=== PATIENT | female | born 1945 | race Caucasian/White ===

== ENCOUNTER 2017-03-28 11:33 | Outpatient (CLI) | payer MEDICARE, OTHER ==
[2017-03-28 12:12] LABS: eGFR (African) > 60; eGFR (Non-African) > 60
--- NOTE | 2017-03-28 14:41 | Diagnostic Imaging Report ---
KATHERIN SHARP [facility] [id number] [facility].[address] [id number] Report Submission Date: March 28, 2017 1:35:27 PM CDT Patient Study Name: KIERRA DEVLIN Date: March 28, 2017 12:03:52 PM CDT Modality Type: CR Gender: F Description: CHEST : 41 Institution: [facility] Physician: KATHERIN SHARP Chest -two views CLINICAL HISTORY: Dyspnea on exertion. FINDINGS: Examination of the chest in PA and lateral views with no prior film for comparison demonstrates cardiomegaly and aortic atherosclerosis. There is a retrocardiac hiatal hernia. Lungs are free of coalescent infiltrate. Bony thorax is intact. IMPRESSION: Cardiomegaly and aortic atherosclerosis. Hiatal hernia. No active disease. Electronically signed on March 28, 2017 1:35:27 PM CDT by: Jose RUBI
== END 2017-03-28 11:34 ==
LOC: RAD 11:33
PROVIDERS: ATTEND Family Medicine
DX: I10 Essential (primary) hypertension (principal); E11.9 Type 2 diabetes mellitus without complications; R06.09 Other forms of dyspnea
CPT/HCPCS: 36415; 71020; 80048; 83036; 84484

== ENCOUNTER 2017-04-08 14:41 | Outpatient (CLI) | payer MEDICARE, OTHER | END 2017-04-08 14:42 | LOC: NEPHRO 14:41 | PROVIDERS: ATTEND Internal Medicine Nephrology | DX: I10 Essential (primary) hypertension (principal); E87.6 Hypokalemia | CPT/HCPCS: G0463 ==

== ENCOUNTER 2017-04-11 12:06 | Outpatient (CLI) | payer MEDICARE, OTHER ==
[2017-04-11 13:46] LABS: eGFR (African) > 60; eGFR (Non-African) > 60
--- NOTE | 2017-04-12 00:46 | Diagnostic Imaging Report ---
CORBY ZHU~ [facility] [address] [facility].[address] [place] [address]. [id number] ~ ~ ~ ~ Report Submission Date: April 11, 2017 3:14:21 PM CDT Patient ~ Study Name: KIERRA DEVLIN ~ Date: April 11, 2017 12:20:02 PM CDT ~ Modality Type: US Gender: F ~ Description: US RETROPERITONEAL LIMIT : 41 ~ Institution: [facility] Physician: CORBY ZHU ~ ~ ~ ~ Renal ultrasound and duplex imaging of the renal vasculature Clinical history: ~Hypertension. ~Hypokalemia. Technique: ~Real time sonography of the kidneys is performed in transverse and longitudinal views. ~Following this duplex imaging of the renal vasculature and abdominal aorta was performed. Findings: ~The right kidney measures 10.9 cm in length by 5.6 x 5.3 cm in size with a calculated volume of 168 ml. ~Left kidney measures 10.2 cm in length by 4.9 x 4.6 cm in size with a calculated volume of 120 ml. ~Renal cortical echogenicity is mildly increased and is approximately equivalent to that of the adjacent liver. ~This is a nonspecific finding. ~2.1 cm right renal cyst is evident in the upper portion of the kidney. ~Corticomedullary differentiation is preserved. ~Central renal echo complex is unremarkable. Duplex imaging of the abdominal aorta demonstrates a peak aortic velocity of 100 cm/sec. ~The peak renal arterial velocity on the right is 140 cm/sec and on the left is 144 cm/sec with a renal artery to aortic ratio of 1.4 bilaterally. Peak velocity of the right renal artery decreases from 140 cm/sec proximally to 67 cm/sec in the midportion. ~This suggests hemodynamically significant stenosis between the proximal and mid renal artery. ~Renal veins demonstrate normal monophasic flow. Impression: 1. ~Increased renal cortical echogenicity that is nonspecific. 2. ~Right renal cyst. 3. ~Right renal artery stenosis between the proximal and midportion. ~ Electronically signed on April 11, 2017 3:14:21 PM CDT by: Jose RUBI
== END 2017-04-11 12:07 ==
LOC: RAD 12:06
PROVIDERS: ATTEND Internal Medicine Nephrology
DX: I10 Essential (primary) hypertension (principal); E87.6 Hypokalemia
CPT/HCPCS: 36415; 80053; 82088; 84244; 93976

== ENCOUNTER 2017-04-22 15:54 | Outpatient (CLI) | payer MEDICARE, OTHER | END 2017-04-22 15:55 | LOC: NEPHRO 15:54 | PROVIDERS: ATTEND Internal Medicine Nephrology | DX: N28.89 Other specified disorders of kidney and ureter (principal) | CPT/HCPCS: G0463 ==

== ENCOUNTER 2017-07-22 13:32 | Outpatient (CLI) | payer MEDICARE, OTHER | END 2017-07-22 13:33 | LOC: NEPHRO 13:32 | PROVIDERS: ATTEND Internal Medicine Nephrology | DX: R30.9 Painful micturition, unspecified (principal) | CPT/HCPCS: G0463 ==

== ENCOUNTER 2017-09-02 14:33 | Outpatient (CLI) | payer MEDICARE, OTHER | END 2017-09-02 14:34 | LOC: NEPHRO 14:33 | PROVIDERS: ATTEND Internal Medicine Nephrology | DX: I10 Essential (primary) hypertension (principal); E26.9 Hyperaldosteronism, unspecified | CPT/HCPCS: G0463 ==

== ENCOUNTER 2018-02-03 13:26 | Outpatient (CLI) | payer MEDICARE, OTHER | END 2018-02-03 13:29 | LOC: NEPHRO 13:26 | PROVIDERS: ATTEND Internal Medicine Nephrology | DX: I10 Essential (primary) hypertension (principal); N17.9 Acute kidney failure, unspecified | CPT/HCPCS: G0463 ==

== ENCOUNTER 2019-01-19 15:19 | Outpatient (CLI) | payer MEDICARE, OTHER | END 2019-01-19 15:21 | LOC: NEPHRO 15:19 | PROVIDERS: ATTEND Internal Medicine Nephrology | DX: I10 Essential (primary) hypertension (principal); E11.9 Type 2 diabetes mellitus without complications | CPT/HCPCS: G0463 ==

== ENCOUNTER 2019-08-03 14:16 | Outpatient (CLI) | payer MEDICARE, OTHER | END 2019-08-03 14:40 | LOC: NEPHRO 14:16 | PROVIDERS: ATTEND Internal Medicine Nephrology | DX: I10 Essential (primary) hypertension (principal); E11.9 Type 2 diabetes mellitus without complications; Z79.84 Long term (current) use of oral hypoglycemic drugs | CPT/HCPCS: 99214; G0463 ==